=== PATIENT | female | born 1985 | race Caucasian/White ===

== ENCOUNTER 2016-04-09 16:07 | Observation (INO) ==
--- NOTE | 2016-04-09 17:24 | Emergency Department Note ---
Disposition Clinical Impression: Intractable nausea and vomiting, Hx of diabetic gastroparesis Disposition: Admitted As Inpatient Condition: Fair Reasons to Return/Additional Instructions: Return to the ED for any new or worsening symptoms. Return to the ED if worsening vomiting, inability to keep down fluids, signs of dehydration, develop abdominal pain or high glucose readings. Continues to take home diabetic medications as prescribed. Referrals: NO,PCP [Primary Care Provider] - Forms: ED Satisfaction Letter General Adult HPI - General Chief complaint: ED Nausea/Vomiting/Diarrhea Stated complaint: DKA, Nausea Time Seen by Provider: 04/09/16 17:04 Source: patient Limitations: no limitations Nursing Notes Reviewed: Yes Vital Signs Reviewed: Yes - History of Present Illness Pain Scale: 1 - Related Data Home Medications Medication Instructions Recorded Confirmed Omeprazole [PriLOSEC] 40 mg PO BID 05/06/15 04/09/16 Insulin Degludec [Tresiba 30 units SQ Q24H 04/09/16 04/09/16 Flextouch U-100] Insulin LISPRO [Humalog Kwikpen 0 unit SQ TIDWM 04/09/16 04/09/16 U-100] Metoclopramide [Reglan] 10 mg PO TID 04/09/16 04/09/16 Allergies Allergy/AdvReac Type Severity Reaction Status Date / Time Penicillins Allergy Anaphylaxis Verified 05/06/15 18:57 Past Medical History - Past Medical History Medical history: Reports: diabetes, other Surgical history: Reports: other Psychiatric history: Reports: no psych history - Social History Smoking Status: Former smoker Smokeless Tobacco Status: No Alcohol use: Reports: none Drug use: Reports: none Physical Exam - General Limitations: no limitations General appearance: alert, in no apparent distress Course Vital Signs Temperature 98.4 F 04/09/16 16:37 Pulse Rate 93 04/09/16 16:37 Respiratory Rate 16 04/09/16 16:37 Blood Pressure 132/94 04/09/16 16:37 O2 Sat by Pulse Oximetry 97 04/09/16 16:37 Temperature 98.4 F 04/09/16 16:37 Pulse Rate 86 04/09/16 20:32 Respiratory Rate 18 04/09/16 20:32 Blood Pressure 133/90 04/09/16 20:32 O2 Sat by Pulse Oximetry 96 04/09/16 20:32 Oxygen Delivery Oxygen Delivery Room Air Medical Decision Making - MDM Narrative Medical decision making narrative: I examined this patient and my medical decision-making was reviewed with the PROGRAM ADMINISTRATOR/PA/Advanced Practice Nurse/Resident Physician. I agree with the documented findings, disposition and treatment plan as described except to the extent set forth below. Patient evaluated with Dr. Ratliff, I agree with his evaluation and management plan, I supervised the care of the patient outstay. Patient has a history of diabetes and DKA. Presents today with sugar in the 130s. She has she has gastroparesis and she often starts with nausea she is found if she can present earlier and fluids and IV medications uses she feels better and can go home. She does take Reglan at home and Zofran but did not take any today. Recheck labs give her fluids and nausea medications check the urine and reassessed. She is in agreement with plan. Has a nonsurgical abdomen here. N did vomit here while being examined. 2013 hrs.: Patient remains nauseated she has had some vomiting despite fluids and multiple doses of antiemetics. I talked with her about this coming into the hospital I think she will be in agreement with that. As I just do not think she is getting better and the short period time in ED. Impressions acute exacerbation of diabetic gastroparesis. Nausea and vomiting.\ 2020: pt agrees to admission.. 2044: hospitalist accepts - Lab Data Result diagrams: 04/09/16 17:44 Lab Results 04/09/16 04/09/16 04/09/16 Range/Units 16:39 17:44 18:51 Sodium 136 (136-145) mEq/L Potassium 3.5 (3.5-4.5) mEq/L Chloride 99 (98-109) mEq/L Carbon Dioxide 28 (19-29) mEq/L BUN 11 (7-20) mg/dL Creatinine 0.63 (0.57-1.11) mg/dL Est GFR ( Amer) > 60 (> 60) Est GFR (Non-Af Amer) > 60 (> 60) BUN/Creatinine Ratio 17 (6-26) Glucose 136 H (70-99) mg/dL POC Glucose 136 H (58-89) Calculated Osmolality 283 (280-300) Calcium 9.8 (8.6-10.8) mg/dL Urine Color (Yellow) Urine Clarity (Clear) Urine pH (5.0-8.0) pH Units Ur Specific [place] (1.010-1.025) Urine Protein (Neg-Trace) mg/dL Urine Glucose (UA) (Normal) mg/dL Urine Ketones (Negative) mg/dL Urine Blood (Negative) Urine Nitrite (Negative) Urine Bilirubin (Negative) Urine Urobilinogen (Normal) mg/dL Ur Leukocyte Esterase (Negative) Urine Microscopic RBC (0-3) per hpf Urine Microscopic WBC (0-3) per hpf Ur Squamous Epith Cells (None-Few) per lpf Urine Bacteria (None-Few) per hpf Urine Test Negative (Negative) 04/09/16 Range/Units 19:31 Sodium (136-145) mEq/L Potassium (3.5-4.5) mEq/L Chloride (98-109) mEq/L Carbon Dioxide (19-29) mEq/L BUN (7-20) mg/dL Creatinine (0.57-1.11) mg/dL Est GFR ( Amer) (> 60) Est GFR (Non-Af Amer) (> 60) BUN/Creatinine Ratio (6-26) Glucose (70-99) mg/dL POC Glucose (58-89) Calculated Osmolality (280-300) Calcium (8.6-10.8) mg/dL Urine Color Yellow (Yellow) Urine Clarity Slightly Hazy (Clear) Urine pH 8.0 (5.0-8.0) pH Units Ur Specific [place] 1.020 (1.010-1.025) Urine Protein Trace (Neg-Trace) mg/dL Urine Glucose (UA) 100 H (Normal) mg/dL Urine Ketones Trace H (Negative) mg/dL Urine Blood Large H (Negative) Urine Nitrite Negative (Negative) Urine Bilirubin Negative (Negative) Urine Urobilinogen Normal (Normal) mg/dL Ur Leukocyte Esterase Negative (Negative) Urine Microscopic RBC 3-5 H (0-3) per hpf Urine Microscopic WBC 3-5 H (0-3) per hpf Ur Squamous Epith Cells Few (None-Few) per lpf Urine Bacteria Few (None-Few) per hpf Urine Test (Negative)
--- NOTE | 2016-04-09 17:25 | Emergency Department Note ---
Disposition Clinical Impression: Hx of diabetic gastroparesis Intractable nausea and vomiting Qualifiers: Vomiting type: unspecified Qualified Code(s): R11.2 - Nausea with vomiting, unspecified Disposition: Admitted As Inpatient Condition: Fair Reasons to Return/Additional Instructions: Referrals: NO,PCP [Primary Care Provider] - Forms: ED Satisfaction Letter Time of Disposition: 20:47 Nausea/Vomiting/Diarrhea HPI - General Chief complaint: ED Nausea/Vomiting/Diarrhea Stated complaint: DKA, Nausea Time Seen by Provider: 04/09/16 17:04 Source: patient Mode of arrival: ambulatory Limitations: no limitations Nursing Notes Reviewed: Yes Vital Signs Reviewed: Yes - History of Present Illness HPI Narrative: Patient is a 31 yo female with PMHx of diabetes, insulin controlled, previous history of DKA with ICU stays, she also has gastroparesis. Patient states that she takes Reglan daily for gastroparesis. She also takes Zofran for breakthrough nausea. Today, she presents with vomiting. She denies any abdominal pain. She says that this is how her gastroparesis usually presents with excessive vomiting. She presented early today due to concerns and fear that this would turn into DKA. She is not had any high blood sugar readings on home. She did not take any Zofran prior to coming in because she wanted to be evaluated first. Otherwise, denies any chest pain, shortness of breath, fevers , diarrhea, abdominal pain. She is unable to keep down any fluids or food. - Related Data Home Medications Medication Instructions Recorded Confirmed Omeprazole [PriLOSEC] 40 mg PO BID 05/06/15 04/09/16 Insulin Degludec [Tresiba 30 units SQ Q24H 04/09/16 04/09/16 Flextouch U-100] Insulin LISPRO [Humalog Kwikpen 0 unit SQ TIDWM 04/09/16 04/09/16 U-100] Metoclopramide [Reglan] 10 mg PO TID 04/09/16 04/09/16 Allergies Allergy/AdvReac Type Severity Reaction Status Date / Time Penicillins Allergy Anaphylaxis Verified 05/06/15 18:57 Constitutional: Denies: fever Cardiovascular: Denies: chest pain, palpitations, dyspnea on exertion Respiratory: Denies: cough, dyspnea, wheezes, hemoptysis Gastrointestinal: Reports: nausea, vomiting. Denies: abdominal pain, diarrhea, constipation Genitourinary: Denies: urgency, dysuria, frequency Musculoskeletal: Denies: back pain, neck pain Integumentary: Denies: rash Neurological: Denies: headache, weakness, numbness, paresthesias Psychiatric: Denies: anxiety Past Medical History - Past Medical History Attestation: Yes The following information was validated with the patient. Source: patient Medical history: Reports: diabetes, other Surgical history: Reports: other Psychiatric history: Reports: no psych history - Social History Smoking Status: Former smoker Smokeless Tobacco Status: No Alcohol use: Reports: none Drug use: Reports: none Physical Exam Patient had copious amounts of vomiting during exam. - General Limitations: no limitations General appearance: alert, in no apparent distress - Head Head exam: atraumatic, normocephalic, normal inspection - Eye Eye exam: Present: normal appearance, PERRL, EOMI - ENT ENT exam: normal exam, normal oropharynx, mucous membranes moist - Neck Neck exam: Present: normal inspection, full ROM, trachea midline - Chest Chest inspection: Present: normal inspection, symmetric chest wall rise - Respiratory Respiratory exam: Present: normal lung sounds bilaterally - Cardiovascular Cardiovascular exam: Present: regular rate, normal rhythm, normal heart sounds - Abdominal Exam Abdominal exam: Present: soft, Non-Tender. Absent: tenderness, distention, guarding, rebound, rigidity - Extremities Exam Extremities exam: Present: normal inspection, full ROM. Absent: tenderness, pedal edema - Back Exam Back exam: Present: normal inspection, full ROM. Absent: tenderness - Neurological Exam Neurological exam: Present: alert, oriented X3 - Psychiatric Psychiatric exam: Present: normal affect, normal mood - Skin Skin exam: Present: warm, dry, intact, normal color Course Course Narrative: Vitals WNL. Physical exam showed no abd tenderness. SHe had copious amounts of vomiting on exam. Glucose was 140s. No concern for DKA at this time. She states this is how her gastroparesis always presents. WIll order BMP, zofran, fluids. WIll try to get patient symptomatically controlled and try to discharge home. She states that this is her goal for this visit as well. 20:00 BMP shows electrolytes WNL. Mildly high glucose at 136. Waiting on UA. Urine preg negative. She has had 2 liters of fluid and continues to have nausea and vomiting. She also got an additional 8 of zofran. Will give home dose of reglan 10mg. WIll also give benadryl 50mg. Discussed admission with the patient for intractable nausea and vomiting in setting of gastroparesis. She was happy and agreeable with this plan. 20:38 UA negative. 20:[address] Jett and he accepted for admission, requested acute abdominal series on the way to the floor. Vital Signs Temperature 98.4 F 04/09/16 16:37 Pulse Rate 93 04/09/16 16:37 Respiratory Rate 16 04/09/16 16:37 Blood Pressure 132/94 04/09/16 16:37 O2 Sat by Pulse Oximetry 97 04/09/16 16:37 Temperature 98.4 F 04/09/16 16:37 Pulse Rate 86 04/09/16 20:32 Respiratory Rate 18 04/09/16 20:32 Blood Pressure 133/90 04/09/16 20:32 O2 Sat by Pulse Oximetry 96 04/09/16 20:32 Oxygen Delivery Oxygen Delivery Room Air Nausea/Vomiting/Diarrhea - [facility] Narrative Medical decision making narrative: Vitals WNL. Physical exam showed no abd tenderness. SHe had copious amounts of vomiting on exam. Glucose was 140s. No concern for DKA at this time. She states this is how her gastroparesis always presents. WIll order BMP, zofran, fluids. WIll try to get patient symptomatically controlled and try to discharge home. She states that this is her goal for this visit as well. 20:00 BMP shows electrolytes WNL. Mildly high glucose at 136. Waiting on UA. Urine preg negative. She has had 2 liters of fluid and continues to have nausea and vomiting. She also got an additional 8 of zofran. Will give home dose of reglan 10mg. WIll also give benadryl 50mg. Discussed admission with the patient for intractable nausea and vomiting in setting of gastroparesis. She was happy and agreeable with this plan. 20:38 UA negative. 20:[address] Jett and he accepted for admission, requested acute abdominal series on the way to the floor. - Medical Records Medical records reviewed: Yes I reviewed the patient's medical records. - Lab Data Lab results reviewed: Yes I reviewed the patient's lab results. Result diagrams: 04/09/16 17:44 Lab Results 02/08/1804/09/16 04/09/16 Range/Units 16:39 17:44 18:51 Sodium 136 (136-145) mEq/L Potassium 3.5 (3.5-4.5) mEq/L Chloride 99 (98-109) mEq/L Carbon Dioxide 28 (19-29) mEq/L BUN 11 (7-20) mg/dL Creatinine 0.63 (0.57-1.11) mg/dL Est GFR ( Amer) > 60 (> 60) Est GFR (Non-Af Amer) > 60 (> 60) BUN/Creatinine Ratio 17 (6-26) Glucose 136 H (70-99) mg/dL POC Glucose 136 H (58-89) Calculated Osmolality 283 (280-300) Calcium 9.8 (8.6-10.8) mg/dL Urine Color (Yellow) Urine Clarity (Clear) Urine pH (5.0-8.0) pH Units Ur Specific [place] (1.010-1.025) Urine Protein (Neg-Trace) mg/dL Urine Glucose (UA) (Normal) mg/dL Urine Ketones (Negative) mg/dL Urine Blood (Negative) Urine Nitrite (Negative) Urine Bilirubin (Negative) Urine Urobilinogen (Normal) mg/dL Ur Leukocyte Esterase (Negative) Urine Microscopic RBC (0-3) per hpf Urine Microscopic WBC (0-3) per hpf Ur Squamous Epith Cells (None-Few) per lpf Urine Bacteria (None-Few) per hpf Urine Test Negative (Negative) 04/09/16 Range/Units 19:31 Sodium (136-145) mEq/L Potassium (3.5-4.5) mEq/L Chloride (98-109) mEq/L Carbon Dioxide (19-29) mEq/L BUN (7-20) mg/dL Creatinine (0.57-1.11) mg/dL Est GFR ( Amer) (> 60) Est GFR (Non-Af Amer) (> 60) BUN/Creatinine Ratio (6-26) Glucose (70-99) mg/dL POC Glucose (58-89) Calculated Osmolality (280-300) Calcium (8.6-10.8) mg/dL Urine Color Yellow (Yellow) Urine Clarity Slightly Hazy (Clear) Urine pH 8.0 (5.0-8.0) pH Units Ur Specific [place] 1.020 (1.010-1.025) Urine Protein Trace (Neg-Trace) mg/dL Urine Glucose (UA) 100 H (Normal) mg/dL Urine Ketones Trace H (Negative) mg/dL Urine Blood Large H (Negative) Urine Nitrite Negative (Negative) Urine Bilirubin Negative (Negative) Urine Urobilinogen Normal (Normal) mg/dL Ur Leukocyte Esterase Negative (Negative) Urine Microscopic RBC 3-5 H (0-3) per hpf Urine Microscopic WBC 3-5 H (0-3) per hpf Ur Squamous Epith Cells Few (None-Few) per lpf Urine Bacteria Few (None-Few) per hpf Urine Test (Negative) S.Frank.Macy - Gin Situation: Demographics, MOA Background: Presenting Complaint, Relevant PMH, Meds, & Allergies Assessment: Vital Signs, Course and respsone to treatment, Exam Concerns, Patient/Family Expectation, Pertinant Lab Results, Outstanding Labs Recommendation: Barrier(s) to disposition, Recommendation based on pending studies, treatments, or consults S.B.ALuciano Report Given to: Dr. Maliha Greenfield Repor Time: 20:47
[2016-04-09] MEDS: 0.9 % Sodium Chloride 1,000 ML IVC ONE ×2 (17:47→18:58)
[2016-04-09] MEDS: Ondansetron 4 MG/2 ML VIAL IVP ONE ×2 (17:47→18:58)
[2016-04-09 18:25] LABS: BUN/Creatinine Ratio 17 (6-26); Blood Urea Nitrogen 11 mg/dL (7-20); Calcium 9.8 mg/dL (8.6-10.8); Carbon Dioxide 28 mEq/L (19-29); Chloride 99 mEq/L (98-109); Glucose 136 mg/dL (70-99); Osmolality,Calculated 283 (280-300); Potassium 3.5 mEq/L (3.5-4.5); Sodium 136 mEq/L (136-145); eGFR For African Americans > 60 (> 60); eGFR For Non-African Americans > 60 (> 60)
[2016-04-09] MEDS ORDERED: 0.9 % Sodium Chloride 1,000 ML IVC ONE ×2 (18:50→20:12)
[2016-04-09] MEDS ORDERED: 0.9 % Sodium Chloride 1,000 ML ONE (18:51)
[2016-04-09] MEDS ORDERED: Ondansetron 4 MG/2 ML VIAL IV ONE (18:52)
[2016-04-09] MEDS ORDERED: Ondansetron 4 MG/2 ML VIAL ONE (18:54)
[2016-04-09] MEDS ORDERED: Metoclopramide 10 MG/2 ML VIAL IVP ONE (20:12)
[2016-04-09 20:18] LABS: Bilirubin,Urine Negative (Negative); Blood,Urine Large (Negative); Clarity,Urine Slightly Hazy (Clear); Color,Urine Yellow (Yellow); Glucose,Urine (UA) 100 mg/dL (Normal); Ketones,Urine Trace mg/dL (Negative)
[2016-04-09 20:19] LABS: Leukocyte Esterase,Urine Negative (Negative); Nitrite,Urine Negative (Negative); Protein,Urine Trace mg/dL (Neg-Trace); Urobilinogen,Urine Normal (Normal)
[2016-04-09 20:22] LABS: Squamous Epithelial Cell,Urine Few per lpf (None-Few)
[2016-04-09 20:23] LABS: Bacteria,Urine Few per hpf (None-Few)
--- NOTE | 2016-04-09 21:00 | Internal Med History&Physical ---
Date of Encounter: 04/09/16 Time of Encounter: 20:57 Assessment and Plan (1) Intractable nausea and vomiting Current visit: Yes Status: Acute Patient with type 1 diabetes, admitted due to intractable vomiting. Clinically dehydrated. No evidence of diabetes ketoacidosis. Evidence of acute kidney injury. Continue with IV fluids. Symptomatic therapy for nausea and vomiting. DVT prophylaxis according to hospital protocol. Monitor fingerstick. Insulin therapy. Discussed with patient. Qualifiers: Vomiting type: cyclical vomiting Qualified Code(s): G43.A1 - Cyclical vomiting, intractable (2) DM type 1 (diabetes mellitus, type 1) Current visit: No Status: Acute No evidence of DKA. Qualifiers: Diabetes mellitus complication status: with ketoacidosis Diabetes mellitus complication detail: without coma Qualified Code(s): E10.10 - Type 1 diabetes mellitus with ketoacidosis without coma (3) DVT prophylaxis Current visit: No Status: Acute (4) Gastroparesis Current visit: No Status: Acute (5) Hx of diabetic gastroparesis Current visit: Yes Status: Acute Internal Medicine - H&P: HPI Chief complaint: Nausea and vomiting Admitted From: Emergency Dept Plans for Post Hospital Care: Home History of present illness: Ms. Tim is a 31 year old female with past medical history 1 diabetes, diabetic gastroparesis. She presented to our emergency department complaining of persistent nausea and vomiting which started earlier today. The patient states that she has vomited at least 7 times, she cannot keep anything down. Denied fever, chest pain, shortness of breath, dysuria, diarrhea. She was already initiated in the emergency department, she was discharged however she returned to the ED for reevaluation due to lack of improvement. Workup in the emergency department revealed a biochemistry consistent with volume of 136, potassium 3.5, BUN 11, creatinine 0.53, glucose 136. Urinalysis was unremarkable. The patient was admitted for further management and workup of her intractable nausea and vomiting. Past Med Surg Social Fam HX - Past Medical History Medical history: diabetes, other Psychiatric history: no psych history - Past Surgical History Surgical History: other - Social History Smoking Status: Former smoker Smokeless Tobacco Status: No Alcohol use: none Drug use: none - Family History Mother Living Status: Still Living Father Living Status: Still Living Internal Medicine - H&P: Meds Omeprazole [PriLOSEC] 40 mg PO BID 05/06/15 [History] Insulin Degludec [Tresiba Flextouch U-100] 30 units SQ Q24H 04/09/16 [History] Insulin LISPRO [Humalog Kwikpen U-100] 0 unit SQ TIDWM 04/09/16 [History] Metoclopramide [Reglan] 10 mg PO TID 04/09/16 [History] Allergies Penicillins Allergy (Verified 05/06/15 18:57) Anaphylaxis All Systems PM: A 10-system review of systems was performed and is negative for pertinent findings except as documented above in the HPI. - Constitutional Constitutional: as per HPI, anorexia, lethargy, malaise, weakness, no chills, no fever(s), no night sweats - EENT Eyes: as per HPI, no change in vision, no discharge, no pain, no photophobia Ears: as per HPI, no ear discharge, no ear pain, no tinnitus Nose, mouth and throat: as per HPI, no dysphagia, no nasal discharge, no neck pain, no sore throat - Breasts Breasts: as per HPI - Cardiovascular Cardiovascular ROS IM: as per HPI, no chest pain, no diaphoresis, no dyspnea, no lightheadedness, no palpitations, no syncope - Respiratory Respiratory: as per HPI, no cough, no dyspnea, no wheezing, no excessive phlegm production - Gastrointestinal Gastrointestinal: as per HPI, abdominal pain, no diarrhea, no hematemesis, no hematochezia, no melena, no nausea, no vomiting - Genitourinary Genitourinary: as per HPI, no change in urinary stream, no dysuria, no flank pain, no hematuria Menstruation: as per HPI - Musculoskeletal Musculoskeletal ROS IM: as per HPI, no numbness, no tingling - Integumentary Integumentary IM: as per HPI, no rash, no unusual bruising - Neurological Neurological ROS: as per HPI, no confusion, no convulsions, no focal weakness, no numbness, no tingling, no tremor(s) - Psychiatric Psychiatric: as per HPI - Endocrine Endocrine IM: as per HPI - Hematologic/Lymphatic Hematologic/Lymphatic: as per HPI, no easy bruising - Allergic/Immunologic Allergic/Immunologic: as per HPI - Constitutional Vitals: Temp Pulse Resp BP Pulse Ox 98.4 F 86 18 133/90 96 04/09/16 16:37 04/09/16 20:32 04/09/16 20:32 04/09/16 20:32 04/09/16 20:32 General appearance: Present: cooperative, mild distress, A&O X 3, pleasant Exam: Dry mucous membranes. - Head Head exam: Present: atraumatic, normocephalic - Eye Eye exam: Present: PERRL, conjuntiva pink, sclera anicteric Pupils: Present: PERRL - Neck Neck exam general surgery: Present: supple, trachea midline. Absent: lymphadenopathy - Respiratory Respiratory exam: Present: CTAB. Absent: accessory muscle use, rales, rhonchi, wheezes - Cardiovascular Cardiovascular exam: Present: RRR, +S1, +S2. Absent: diastolic murmur, gallop, rubs, systolic murmur - GI/Abdominal GI/Abdominal exam: Present: normal bowel sounds, soft, no peritoneal signs. Absent: distended, tenderness - Extremities Exam Extremities exam: Present: warm, radial pulses palpable and symetrical. Absent : calf tenderness, cyanotic, pedal edema - Neurological Exam Neurological exam: Present: CN II-XII intact, oriented X3, no focal deficits. Absent: pronater drift, facial droop, speech deficit - Skin Skin exam: Present: dry, intact Internal Med - H&P Results - Labs CBC & Chem 7: 04/09/16 17:44
[2016-04-09] MEDS ORDERED: Naloxone 0.4 MG/ML INJ IVP PRN (21:07)
[2016-04-09] MEDS ORDERED: Ondansetron 4 MG/2 ML VIAL IVP PRN (21:07)
[2016-04-09] MEDS ORDERED: Acetaminophen 325 MG TABLET PO PRN (21:07)
[2016-04-09] MEDS ORDERED: Metoclopramide 10 MG/2 ML VIAL IVP PRN (21:10)
[2016-04-09] MEDS ORDERED: Dextrose Gel 15 GM PO PRN ×2 (21:10)
[2016-04-09] MEDS ORDERED: D5% in Water 1,000 ML IV PRN (21:10)
[2016-04-09] MEDS ORDERED: *HR* Dextrose 50 % in Water (Syg) 50 ML SYRINGE IVP PRN (21:10)
[2016-04-09] MEDS: Ringers Solution, Lactated 1,000 ML IVC SCH (22:00)
[2016-04-10] MEDS ORDERED: *HR* Dextrose 50 % in Water (Syg) 50 ML SYRINGE IVP PRN (02:32)
[2016-04-10] MEDS ORDERED: D5% in Water 1,000 ML IV PRN (02:32)
[2016-04-10] MEDS ORDERED: Dextrose Gel 15 GM PO PRN ×2 (02:32)
[2016-04-10] MEDS ORDERED: Insulin LISPRO 300 UNITS/3 ML VIAL SQ ONE (02:33)
[2016-04-10 04:54] VITALS: BP 101/69
[2016-04-10 05:33] LABS: Hemoglobin 12.5 g/dL (11.5-15.4); Mean Corpuscular HGB Conc 32.9 g/dL (31.6-35.5); Mean Corpuscular Hemoglobin 28.2 pg (28.0-33.3); Mean Corpuscular Volume 85.6 fL (83.0-100.0); Mean Platelet Volume 9.5 fL (9.4-12.4); Platelet Count 240 K/mcL (140-400); Red Blood Count 4.44 M/mcL (3.82-4.97); Red Cell Distribution Width 12.3 % (11.5-14.5)
[2016-04-10] MEDS: Ringers Solution, Lactated 1,000 ML IVC SCH ×2 (05:42→08:12)
[2016-04-10 05:52] LABS: BUN/Creatinine Ratio 13 (6-26); Blood Urea Nitrogen 7 mg/dL (7-20); Carbon Dioxide 22 mEq/L (19-29); Chloride 108 mEq/L (98-109); Glucose 246 mg/dL (70-99); Osmolality,Calculated 292 (280-300); Potassium 3.5 mEq/L (3.5-4.5); Sodium 138 mEq/L (136-145); eGFR For African Americans > 60 (> 60); eGFR For Non-African Americans > 60 (> 60)
[2016-04-10 05:54] LABS: Calcium 8.1 mg/dL (8.6-10.8)
[2016-04-10] MEDS ORDERED: Famotidine 20 MG/2 ML VIAL IVP SCH (06:00)
[2016-04-10] MEDS ORDERED: Insulin LISPRO 300 UNITS/3 ML VIAL SQ SCH ×2 (07:30→08:00)
[2016-04-10] MEDS ORDERED: TRESIBA 30 UNIT SQ SCH (09:00)
--- NOTE | 2016-04-10 09:35 | Event Note ---
Date of Encounter: 04/10/16 Time of Encounter: 09:10 Informed by RAQUEL Means that the patient is not in her room and appears to have eloped the hospital. She did not sign any AMA paperwork. Patient left prior to my evaluation.
[2016-04-10] MEDS ORDERED: Insulin DETEMIR 100 UNIT/ML X5UNITS SQ SCH (21:00)
== END 2016-04-10 08:53 | disposition left against medical advice (07) ==
LOC: EMEROO 16:07 → 3ANU 16:07
PROVIDERS: ADMIT Pediatrics; ATTEND Internal Medicine

== ENCOUNTER 2017-10-07 11:05 | Inpatient (IN) ==
[2017-10-07] MEDS ORDERED: Ondansetron 4 MG/2 ML VIAL IVP ONE (11:12)
--- NOTE | 2017-10-07 11:13 | Emergency Department Note ---
Disposition Clinical Impression: Gastroparesis due to DM DKA (diabetic ketoacidoses) Qualifiers: Diabetes mellitus type: type 1 Diabetes mellitus complication detail: without coma Qualified Code(s): E10.10 - Type 1 diabetes mellitus with ketoacidosis without coma Nausea & vomiting Qualifiers: Vomiting type: unspecified Vomiting Intractability: non-intractable Qualified Code(s): R11.2 - Nausea with vomiting, unspecified Disposition: Admitted As Inpatient Condition: Fair Referrals: Yoana Napier CNP [Primary Care Provider] - Time of Disposition: 13:39 Abdominal Pain HPI - General Chief Complaint: ED Abdominal Pain Stated Complaint: Abdominal pain vomiting Time Seen by Provider: 10/07/17 11:07 Source: patient Mode of arrival: EMS Limitations: no limitations Nursing Notes Reviewed: Yes Vital Signs Reviewed: Yes - History of Present Illness HPI Narrative: 32-year-old female with history of type 1 diabetes and gastroparesis presents via EMS with complaints of acute nausea and vomiting since 0300. Patient states that yesterday she was at [facility] and in the evening had 4 alcoholic drinks. She then came home and woke up with acute symptoms. She vomited the drinks up first, then her food. She tried to drink water and immediately threw that up as well. Her pain is all located in the epigastric region and is rated 5/10 described as a crampy pain. She denies any fevers, chills, chest pain, shortness of breath, diarrhea. Pain Scale: 4 - Related Data Allergies Allergy/AdvReac Type Severity Reaction Status Date / Time Penicillins Allergy Anaphylaxis Verified 05/06/15 18:57 All systems ED: reviewed and negative except as stated. Abdominal Pain PMH - Past Medical History Medical history: Reports: diabetes, other (gastroparesis) Female Surgical History: Reports: Adenoidectomy, Tonsillectomy, other LMP comments: week(s) (1) Psychiatric history: Reports: no psych history - Social History Smoking status: Former smoker Alcohol use: Reports: occasionally Drug use: Reports: none Physical Exam - General Limitations: no limitations General appearance: alert, anxious - Head Head exam: atraumatic, normocephalic, normal inspection - Eye Eye exam: Present: normal appearance, PERRL, EOMI - ENT ENT exam: mucous membranes dry - Neck Neck exam: Present: normal inspection, full ROM, trachea midline - Respiratory Respiratory exam: Present: normal lung sounds bilaterally - Cardiovascular Cardiovascular exam: Present: normal rhythm, tachycardia - Abdominal Exam Abdominal exam: Present: soft, tenderness. Absent: distention, guarding, rebound, rigidity Abdominal tenderness: Present: epigastrium, mild - Extremities Exam Extremities exam: Present: normal inspection, full ROM. Absent: tenderness, pedal edema - Neurological Exam Neurological exam: Present: alert, oriented X3 - Psychiatric Psychiatric exam: Present: normal affect, normal mood - Skin Skin exam: Present: warm, dry, intact, normal color Course Course Narrative: 32-year-old female presents with acute vomiting since 0300. History of type 1 diabetes and gastroparesis. States that she was at [facility] and had 4 alcoholic beverages yesterday. Symptoms are cramping in the epigastric region. Pain is rated 5 out of 10. Patient states she has a history of 4 episodes of this in the past. No known triggers for episodes. She has ended up intubated in the ICU before. She usually takes reglan for sx at home and tries to avoid hospitalization. Patient is acutely vomiting clear fluids on arrival. Will give Zofran IV and 1 L bolus. Lab work and UA pending. - Reevaluation(s) Reevaluation #1: Pt feeling better after zofran and 1L NS bolus. Discussed that labwork shows DKA. pH 7.21, HCO3 8, CO2 23, K 3.9. Corrected Na 144. Will start DKA protocol. Pt will be admitted for management. Time: 13:25 - Consultations Consultation #1: Discussed the case with Dr. Das with the hospitalist service who has accepted the patient for admission. 1 amp of Bicarb ordered per his request. Time: 13:38 Vital Signs Temperature 98.1 F 10/07/17 11:07 Pulse Rate 107 10/07/17 11:07 Respiratory Rate 16 10/07/17 11:07 Blood Pressure 114/78 10/07/17 11:07 O2 Sat by Pulse Oximetry 98 10/07/17 11:07 Temperature 98.1 F 10/07/17 11:07 Pulse Rate 106 10/07/17 13:11 Respiratory Rate 18 10/07/17 13:11 Blood Pressure 97/56 10/07/17 13:11 O2 Sat by Pulse Oximetry 98 10/07/17 13:11 Oxygen Delivery Oxygen Delivery Room Air Abdominal Pain - MDM Narrative Medical decision making narrative: 32 y/of DM type 1 presents with acute nausea, vomiting. Labwork shows DKA. Pt admitted with fluids, K, insulin drip. Discussed case with hospitalists who have accepted pt for admission for management of DKA. PT stable for admission. - Medical Records Medical records reviewed: Yes I reviewed the patient's medical records. - Lab Data Lab results reviewed: Yes I reviewed the patient's lab results. Result diagrams: 10/07/17 11:28 10/07/17 11:28 Lab Results 10/07/17 10/07/17 10/07/17 Range/Units 11:28 11:28 11:56 WBC 12.8 H (4.3-11.1) K/mcL RBC 4.24 (3.82-4.97) M/mcL Hgb 13.8 (11.5-15.4) g/dL Hct 43.0 (35.3-44.9) % MCV 101.4 H (83.0-100.0) fL MCH 32.5 (28.0-33.3) pg MCHC 32.1 (31.6-35.5) g/dL RDW 13.4 (11.5-14.5) % Plt Count 327 (140-400) K/mcL MPV 9.1 L (9.4-12.4) fL Immature Gran % 1.2 (0-4) % Seg Neutrophils % 82.4 % Lymphocytes % 12.4 % Monocytes % 2.9 % Eosinophils % 0.2 % Basophils % 0.9 % Neutrophils # 10.6 H (1.6-8.9) K/mcL Lymphocytes # 1.6 (0.6-4.6) K/mcL Monocytes # 0.4 (0.0-1.3) K/mcL Eosinophils # 0.0 (0.0-0.6) K/mcL Basophils # 0.1 (0.0-0.2) K/mcL VBG pH (7.32-7.42) pH Units VBG pCO2 (41-51) mmHg VBG pO2 (25-50) mmHg VBG HCO3 (21-27) mEq/L Sodium 139 (136-145) mEq/L Potassium 3.9 (3.5-5.1) mEq/L Chloride 102 (98-107) mEq/L Carbon Dioxide 8 L* (23-29) mEq/L BUN 16 (6-20) mg/dL Creatinine 0.76 (0.60-1.20) mg/dL Est GFR ( Amer) > 60 (> 60) Est GFR (Non-Af Amer) > 60 (> 60) BUN/Creatinine Ratio 21 (6-26) Glucose 389 H (70-105) mg/dL POC Glucose (70-99) mg/dL Calculated Osmolality 305 H (280-300) Calcium 8.8 (8.6-10.3) mg/dL Total Bilirubin 0.4 (0.3-1.0) mg/dL Direct Bilirubin 0.1 (0.0-0.2) mg/dL Indirect Bilirubin 0.3 (0.0-1.2) mg/dL AST 34 (13-39) Units/L ALT 25 (7-52) Units/L Alkaline Phosphatase 87 (34-104) Units/L Serum Total Protein 6.5 (6.4-8.9) g/dL Albumin 4.0 (3.5-5.7) g/dL Globulin 2.5 (2.4-3.5) g/dL Albumin/Globulin Ratio 1.6 (1.1-2.2) Amylase 17 L (29-103) Units/L Lipase 4 L (11-82) Units/L Beta-Hydroxybutyric Acd (0.02-0.27) mmol/L Urine Color Yellow (Yellow) Urine Clarity Clear (Clear) Urine pH 5.5 (5.0-8.0) pH Units Ur Specific [place] > 1.030 H (1.010-1.025) Urine Protein Trace (Neg-Trace) mg/dL Urine Glucose (UA) >=1000 H (Normal) mg/dL Urine Ketones >=160 H (Negative) mg/dL Urine Blood Large H (Negative) Urine Nitrite Negative (Negative) Urine Bilirubin Negative (Negative) Urine Urobilinogen Normal (Normal) mg/dL Ur Leukocyte Esterase Negative (Negative) Urine Microscopic RBC 5-15 H (0-3) per hpf Urine Microscopic WBC 3-5 H (0-3) per hpf Ur Squamous Epith Cells Moderate H (None-Few) per lpf Urine Bacteria None Seen (None-Few) per hpf Hyaline Casts None Seen (None-Few) per lpf Ur Culture Indicated? NO (NO) Urine Test (Negative) 10/07/17 10/07/17 10/07/17 Range/Units 11:56 11:59 12:14 WBC (4.3-11.1) K/mcL RBC (3.82-4.97) M/mcL Hgb (11.5-15.4) g/dL Hct (35.3-44.9) % MCV (83.0-100.0) fL MCH (28.0-33.3) pg MCHC (31.6-35.5) g/dL RDW (11.5-14.5) % Plt Count (140-400) K/mcL MPV (9.4-12.4) fL Immature Gran % (0-4) % Seg Neutrophils % % Lymphocytes % % Monocytes % % Eosinophils % % Basophils % % Neutrophils # (1.6-8.9) K/mcL Lymphocytes # (0.6-4.6) K/mcL Monocytes # (0.0-1.3) K/mcL Eosinophils # (0.0-0.6) K/mcL Basophils # (0.0-0.2) K/mcL VBG pH 7.21 L (7.32-7.42) pH Units VBG pCO2 23 L (41-51) mmHg VBG pO2 180 H (25-50) mmHg VBG HCO3 9 L (21-27) mEq/L Sodium (136-145) mEq/L Potassium (3.5-5.1) mEq/L Chloride (98-107) mEq/L Carbon Dioxide (23-29) mEq/L BUN (6-20) mg/dL Creatinine (0.60-1.20) mg/dL Est GFR ( Amer) (> 60) Est GFR (Non-Af Amer) (> 60) BUN/Creatinine Ratio (6-26) Glucose (70-105) mg/dL POC Glucose (70-99) mg/dL Calculated Osmolality (280-300) Calcium (8.6-10.3) mg/dL Total Bilirubin (0.3-1.0) mg/dL Direct Bilirubin (0.0-0.2) mg/dL Indirect Bilirubin (0.0-1.2) mg/dL AST (13-39) Units/L ALT (7-52) Units/L Alkaline Phosphatase (34-104) Units/L Serum Total Protein (6.4-8.9) g/dL Albumin (3.5-5.7) g/dL Globulin (2.4-3.5) g/dL Albumin/Globulin Ratio (1.1-2.2) Amylase (29-103) Units/L Lipase (11-82) Units/L Beta-Hydroxybutyric Acd > 2.00 H (0.02-0.27) mmol/L Urine Color (Yellow) Urine Clarity (Clear) Urine pH (5.0-8.0) pH Units Ur Specific [place] (1.010-1.025) Urine Protein (Neg-Trace) mg/dL Urine Glucose (UA) (Normal) mg/dL Urine Ketones (Negative) mg/dL Urine Blood (Negative) Urine Nitrite (Negative) Urine Bilirubin (Negative) Urine Urobilinogen (Normal) mg/dL Ur Leukocyte Esterase (Negative) Urine Microscopic RBC (0-3) per hpf Urine Microscopic WBC (0-3) per hpf Ur Squamous Epith Cells (None-Few) per lpf Urine Bacteria (None-Few) per hpf Hyaline Casts (None-Few) per lpf Ur Culture Indicated? (NO) Urine Test Negative (Negative) 10/07/17 Range/Units 13:31 WBC (4.3-11.1) K/mcL RBC (3.82-4.97) M/mcL Hgb (11.5-15.4) g/dL Hct (35.3-44.9) % MCV (83.0-100.0) fL MCH (28.0-33.3) pg MCHC (31.6-35.5) g/dL RDW (11.5-14.5) % Plt Count (140-400) K/mcL MPV (9.4-12.4) fL Immature Gran % (0-4) % Seg Neutrophils % % Lymphocytes % % Monocytes % % Eosinophils % % Basophils % % Neutrophils # (1.6-8.9) K/mcL Lymphocytes # (0.6-4.6) K/mcL Monocytes # (0.0-1.3) K/mcL Eosinophils # (0.0-0.6) K/mcL Basophils # (0.0-0.2) K/mcL VBG pH (7.32-7.42) pH Units VBG pCO2 (41-51) mmHg VBG pO2 (25-50) mmHg VBG HCO3 (21-27) mEq/L Sodium (136-145) mEq/L Potassium (3.5-5.1) mEq/L Chloride (98-107) mEq/L Carbon Dioxide (23-29) mEq/L BUN (6-20) mg/dL Creatinine (0.60-1.20) mg/dL Est GFR ( Amer) (> 60) Est GFR (Non-Af Amer) (> 60) BUN/Creatinine Ratio (6-26) Glucose (70-105) mg/dL POC Glucose 109 H (70-99) mg/dL Calculated Osmolality (280-300) Calcium (8.6-10.3) mg/dL Total Bilirubin (0.3-1.0) mg/dL Direct Bilirubin (0.0-0.2) mg/dL Indirect Bilirubin (0.0-1.2) mg/dL AST (13-39) Units/L ALT (7-52) Units/L Alkaline Phosphatase (34-104) Units/L Serum Total Protein (6.4-8.9) g/dL Albumin (3.5-5.7) g/dL Globulin (2.4-3.5) g/dL Albumin/Globulin Ratio (1.1-2.2) Amylase (29-103) Units/L Lipase (11-82) Units/L Beta-Hydroxybutyric Acd (0.02-0.27) mmol/L Urine Color (Yellow) Urine Clarity (Clear) Urine pH (5.0-8.0) pH Units Ur Specific Nunn (1.010-1.025) Urine Protein (Neg-Trace) mg/dL Urine Glucose (UA) (Normal) mg/dL Urine Ketones (Negative) mg/dL Urine Blood (Negative) Urine Nitrite (Negative) Urine Bilirubin (Negative) Urine Urobilinogen (Normal) mg/dL Ur Leukocyte Esterase (Negative) Urine Microscopic RBC (0-3) per hpf Urine Microscopic WBC (0-3) per hpf Ur Squamous Epith Cells (None-Few) per lpf Urine Bacteria (None-Few) per hpf Hyaline Casts (None-Few) per lpf Ur Culture Indicated? (NO) Urine Test (Negative) Attestation Statement - Attestation Attestation: I, Timmy Kemp DO, examined this patient [id number] and my medical decision-making was reviewed with Audrey Jaramillo PGY-3, Resident Physician. I agree with the documented findings, disposition and treatment plan as described except to the extent set forth below. Please see my progress notes for details.
[2017-10-07] MEDS ORDERED: 0.9 % Sodium Chloride 1,000 ML IVC ONE (11:18)
[2017-10-07 11:39] LABS: Basophils # 0.1 K/mcL (0.0-0.2); Basophils % 0.9 %; Eosinophils % 0.2 %; Hemoglobin 13.8 g/dL (11.5-15.4); Immature Granulocytes % 1.2 % (0-4); Lymphocytes # 1.6 K/mcL (0.6-4.6); Lymphocytes % 12.4 %; Mean Corpuscular HGB Conc 32.1 g/dL (31.6-35.5); Mean Corpuscular Hemoglobin 32.5 pg (28.0-33.3); Mean Corpuscular Volume 101.4 fL (83.0-100.0); Mean Platelet Volume 9.1 fL (9.4-12.4); Monocytes # 0.4 K/mcL (0.0-1.3); Monocytes % 2.9 %; Neutrophils # 10.6 K/mcL (1.6-8.9); Platelet Count 327 K/mcL (140-400); Red Blood Count 4.24 M/mcL (3.82-4.97); Red Cell Distribution Width 13.4 % (11.5-14.5); Segmented Neutrophils % 82.4 %
[2017-10-07 12:00] LABS: Alanine Aminotransferase 25 Units/L (7-52); Albumin/Globulin Ratio 1.6 (1.1-2.2); Alkaline Phosphatase 87 Units/L (34-104); Amylase 17 Units/L (29-103); Aspartate Amino Transferase 34 Units/L (13-39); BUN/Creatinine Ratio 21 (6-26); Bilirubin,Direct 0.1 mg/dL (0.0-0.2); Bilirubin,Indirect 0.3 mg/dL (0.0-1.2); Bilirubin,Total 0.4 mg/dL (0.3-1.0); Blood Urea Nitrogen 16 mg/dL (6-20); Calcium 8.8 mg/dL (8.6-10.3); Carbon Dioxide 8 mEq/L (23-29); Chloride 102 mEq/L (98-107); Globulin 2.5 g/dL (2.4-3.5); Glucose 389 mg/dL (70-105); Lipase 4 Units/L (11-82); Osmolality,Calculated 305 (280-300); Potassium 3.9 mEq/L (3.5-5.1); Sodium 139 mEq/L (136-145); Total Protein 6.5 g/dL (6.4-8.9); eGFR For Non-African Americans > 60 (> 60)
[2017-10-07 12:16] LABS: VBG HCO3 9 mEq/L (21-27); VBG PCO2 23 mmHg (41-51); VBG PH 7.21 pH Units (7.32-7.42); VBG PO2 180 mmHg (25-50)
[2017-10-07 12:24] LABS: Bilirubin,Urine Negative (Negative); Blood,Urine Large (Negative); Clarity,Urine Clear (Clear); Color,Urine Yellow (Yellow); Glucose,Urine (UA) >=1000 mg/dL (Normal); Ketones,Urine >=160 mg/dL (Negative); Leukocyte Esterase,Urine Negative (Negative); Nitrite,Urine Negative (Negative); PH,Urine 5.5 pH Units (5.0-8.0); Protein,Urine Trace mg/dL (Neg-Trace); Specific Gravity,Urine > 1.030 (1.010-1.025); Urobilinogen,Urine Normal (Normal)
[2017-10-07 12:28] LABS: Bacteria,Urine None Seen per hpf (None-Few); Hyaline Casts,Urine None Seen per lpf (None-Few); Squamous Epithelial Cell,Urine Moderate per lpf (None-Few)
[2017-10-07] MEDS ORDERED: *HR* Dextrose 50 % in Water (Syg) 50 ML SYRINGE IVP PRN ×3 (12:42→15:09)
[2017-10-07] MEDS ORDERED: Insulin Regular, Human 100 UNIT/ML IV PRN ×2 (12:42→12:54)
[2017-10-07] MEDS ORDERED: Potassium Chloride 40 MEQ, Lidocaine 1% 2 ML in D5% in Water 500 ML IVPB ONE (12:56)
[2017-10-07] MEDS ORDERED: Insulin Human Regular 100 UNIT in 0.9 % Sodium Chloride 100 ML IVC SCH (13:00)
[2017-10-07] MEDS ORDERED: 0.9 % Sodium Chloride w KCl 20 MEQ/1,000 ML MLS IVC SCH (13:00)
[2017-10-07] MEDS: 0.9 % Sodium Chloride 1,000 ML IVC SCH ×2 (13:03→16:00)
--- NOTE | 2017-10-07 13:44 | Emergency Department Note ---
Disposition Clinical Impression: Gastroparesis due to DM DKA (diabetic ketoacidoses) Qualifiers: Diabetes mellitus type: type 1 Diabetes mellitus complication detail: without coma Qualified Code(s): E10.10 - Type 1 diabetes mellitus with ketoacidosis without coma Nausea & vomiting Qualifiers: Vomiting type: unspecified Vomiting Intractability: non-intractable Qualified Code(s): R11.2 - Nausea with vomiting, unspecified Disposition: Admitted As Inpatient Condition: Fair Referrals: NONE,PCP [Primary Care Provider] - Forms: ED Satisfaction Letter, Work/School Release Time of Disposition: 13:44 General Adult HPI - General Chief complaint: ED Abdominal Pain Stated complaint: Abdominal pain vomiting Time Seen by Provider: 10/07/17 11:07 Source: patient Mode of arrival: EMS Limitations: no limitations - History of Present Illness Pain Scale: 4 - Related Data Home Medications Medication Instructions Recorded Confirmed Omeprazole [PriLOSEC] 40 mg PO BID 05/06/15 04/09/16 Insulin Degludec [Tresiba 30 units SQ Q24H 04/09/16 04/09/16 Flextouch U-100] Insulin LISPRO [Humalog Kwikpen 0 unit SQ TIDWM 04/09/16 04/09/16 U-100] Metoclopramide [Reglan] 10 mg PO TID 04/09/16 04/09/16 Allergies Allergy/AdvReac Type Severity Reaction Status Date / Time Penicillins Allergy Anaphylaxis Verified 05/06/15 18:57 Past Medical History - Past Medical History Medical history: Reports: diabetes, other (gastroparesis) Surgical history: Reports: other Psychiatric history: Reports: no psych history - Social History Smoking Status: Former smoker Smokeless Tobacco Status: No Alcohol use: Reports: occasionally Drug use: Reports: none Physical Exam - General Limitations: no limitations General appearance: alert, anxious Course Vital Signs Temperature 98.1 F 10/07/17 11:07 Pulse Rate 107 10/07/17 11:07 Respiratory Rate 16 10/07/17 11:07 Blood Pressure 114/78 10/07/17 11:07 O2 Sat by Pulse Oximetry 98 10/07/17 11:07 Temperature 98.1 F 10/07/17 11:07 Pulse Rate 106 10/07/17 13:11 Respiratory Rate 18 10/07/17 13:11 Blood Pressure 97/56 10/07/17 13:11 O2 Sat by Pulse Oximetry 98 10/07/17 13:11 Oxygen Delivery Oxygen Delivery Room Air Medical Decision Making - Lab Data Result diagrams: 10/07/17 11:28 10/07/17 11:28 Lab Results 10/07/17 10/07/17 10/07/17 Range/Units 11:28 11:28 11:56 WBC 12.8 H (4.3-11.1) K/mcL RBC 4.24 (3.82-4.97) M/mcL Hgb 13.8 (11.5-15.4) g/dL Hct 43.0 (35.3-44.9) % MCV 101.4 H (83.0-100.0) fL MCH 32.5 (28.0-33.3) pg MCHC 32.1 (31.6-35.5) g/dL RDW 13.4 (11.5-14.5) % Plt Count 327 (140-400) K/mcL MPV 9.1 L (9.4-12.4) fL Immature Gran % 1.2 (0-4) % Seg Neutrophils % 82.4 % Lymphocytes % 12.4 % Monocytes % 2.9 % Eosinophils % 0.2 % Basophils % 0.9 % Neutrophils # 10.6 H (1.6-8.9) K/mcL Lymphocytes # 1.6 (0.6-4.6) K/mcL Monocytes # 0.4 (0.0-1.3) K/mcL Eosinophils # 0.0 (0.0-0.6) K/mcL Basophils # 0.1 (0.0-0.2) K/mcL VBG pH (7.32-7.42) pH Units VBG pCO2 (41-51) mmHg VBG pO2 (25-50) mmHg VBG HCO3 (21-27) mEq/L Sodium 139 (136-145) mEq/L Potassium 3.9 (3.5-5.1) mEq/L Chloride 102 (98-107) mEq/L Carbon Dioxide 8 L* (23-29) mEq/L BUN 16 (6-20) mg/dL Creatinine 0.76 (0.60-1.20) mg/dL Est GFR ( Amer) > 60 (> 60) Est GFR (Non-Af Amer) > 60 (> 60) BUN/Creatinine Ratio 21 (6-26) Glucose 389 H (70-105) mg/dL POC Glucose (70-99) mg/dL Calculated Osmolality 305 H (280-300) Calcium 8.8 (8.6-10.3) mg/dL Total Bilirubin 0.4 (0.3-1.0) mg/dL Direct Bilirubin 0.1 (0.0-0.2) mg/dL Indirect Bilirubin 0.3 (0.0-1.2) mg/dL AST 34 (13-39) Units/L ALT 25 (7-52) Units/L Alkaline Phosphatase 87 (34-104) Units/L Serum Total Protein 6.5 (6.4-8.9) g/dL Albumin 4.0 (3.5-5.7) g/dL Globulin 2.5 (2.4-3.5) g/dL Albumin/Globulin Ratio 1.6 (1.1-2.2) Amylase 17 L (29-103) Units/L Lipase 4 L (11-82) Units/L Beta-Hydroxybutyric Acd (0.02-0.27) mmol/L Urine Color Yellow (Yellow) Urine Clarity Clear (Clear) Urine pH 5.5 (5.0-8.0) pH Units Ur Specific [place] > 1.030 H (1.010-1.025) Urine Protein Trace (Neg-Trace) mg/dL Urine Glucose (UA) >=1000 H (Normal) mg/dL Urine Ketones >=160 H (Negative) mg/dL Urine Blood Large H (Negative) Urine Nitrite Negative (Negative) Urine Bilirubin Negative (Negative) Urine Urobilinogen Normal (Normal) mg/dL Ur Leukocyte Esterase Negative (Negative) Urine Microscopic RBC 5-15 H (0-3) per hpf Urine Microscopic WBC 3-5 H (0-3) per hpf Ur Squamous Epith Cells Moderate H (None-Few) per lpf Urine Bacteria None Seen (None-Few) per hpf Hyaline Casts None Seen (None-Few) per lpf Ur Culture Indicated? NO (NO) Urine Test (Negative) 10/07/17 10/07/17 10/07/17 Range/Units 11:56 11:59 12:14 WBC (4.3-11.1) K/mcL RBC (3.82-4.97) M/mcL Hgb (11.5-15.4) g/dL Hct (35.3-44.9) % MCV (83.0-100.0) fL MCH (28.0-33.3) pg MCHC (31.6-35.5) g/dL RDW (11.5-14.5) % Plt Count (140-400) K/mcL MPV (9.4-12.4) fL Immature Gran % (0-4) % Seg Neutrophils % % Lymphocytes % % Monocytes % % Eosinophils % % Basophils % % Neutrophils # (1.6-8.9) K/mcL Lymphocytes # (0.6-4.6) K/mcL Monocytes # (0.0-1.3) K/mcL Eosinophils # (0.0-0.6) K/mcL Basophils # (0.0-0.2) K/mcL VBG pH 7.21 L (7.32-7.42) pH Units VBG pCO2 23 L (41-51) mmHg VBG pO2 180 H (25-50) mmHg VBG HCO3 9 L (21-27) mEq/L Sodium (136-145) mEq/L Potassium (3.5-5.1) mEq/L Chloride (98-107) mEq/L Carbon Dioxide (23-29) mEq/L BUN (6-20) mg/dL Creatinine (0.60-1.20) mg/dL Est GFR ( Amer) (> 60) Est GFR (Non-Af Amer) (> 60) BUN/Creatinine Ratio (6-26) Glucose (70-105) mg/dL POC Glucose (70-99) mg/dL Calculated Osmolality (280-300) Calcium (8.6-10.3) mg/dL Total Bilirubin (0.3-1.0) mg/dL Direct Bilirubin (0.0-0.2) mg/dL Indirect Bilirubin (0.0-1.2) mg/dL AST (13-39) Units/L ALT (7-52) Units/L Alkaline Phosphatase (34-104) Units/L Serum Total Protein (6.4-8.9) g/dL Albumin (3.5-5.7) g/dL Globulin (2.4-3.5) g/dL Albumin/Globulin Ratio (1.1-2.2) Amylase (29-103) Units/L Lipase (11-82) Units/L Beta-Hydroxybutyric Acd > 2.00 H (0.02-0.27) mmol/L Urine Color (Yellow) Urine Clarity (Clear) Urine pH (5.0-8.0) pH Units Ur Specific [place] (1.010-1.025) Urine Protein (Neg-Trace) mg/dL Urine Glucose (UA) (Normal) mg/dL Urine Ketones (Negative) mg/dL Urine Blood (Negative) Urine Nitrite (Negative) Urine Bilirubin (Negative) Urine Urobilinogen (Normal) mg/dL Ur Leukocyte Esterase (Negative) Urine Microscopic RBC (0-3) per hpf Urine Microscopic WBC (0-3) per hpf Ur Squamous Epith Cells (None-Few) per lpf Urine Bacteria (None-Few) per hpf Hyaline Casts (None-Few) per lpf Ur Culture Indicated? (NO) Urine Test Negative (Negative) 10/07/17 Range/Units 13:31 WBC (4.3-11.1) K/mcL RBC (3.82-4.97) M/mcL Hgb (11.5-15.4) g/dL Hct (35.3-44.9) % MCV (83.0-100.0) fL MCH (28.0-33.3) pg MCHC (31.6-35.5) g/dL RDW (11.5-14.5) % Plt Count (140-400) K/mcL MPV (9.4-12.4) fL Immature Gran % (0-4) % Seg Neutrophils % % Lymphocytes % % Monocytes % % Eosinophils % % Basophils % % Neutrophils # (1.6-8.9) K/mcL Lymphocytes # (0.6-4.6) K/mcL Monocytes # (0.0-1.3) K/mcL Eosinophils # (0.0-0.6) K/mcL Basophils # (0.0-0.2) K/mcL VBG pH (7.32-7.42) pH Units VBG pCO2 (41-51) mmHg VBG pO2 (25-50) mmHg VBG HCO3 (21-27) mEq/L Sodium (136-145) mEq/L Potassium (3.5-5.1) mEq/L Chloride (98-107) mEq/L Carbon Dioxide (23-29) mEq/L BUN (6-20) mg/dL Creatinine (0.60-1.20) mg/dL Est GFR ( Amer) (> 60) Est GFR (Non-Af Amer) (> 60) BUN/Creatinine Ratio (6-26) Glucose (70-105) mg/dL POC Glucose 109 H (70-99) mg/dL Calculated Osmolality (280-300) Calcium (8.6-10.3) mg/dL Total Bilirubin (0.3-1.0) mg/dL Direct Bilirubin (0.0-0.2) mg/dL Indirect Bilirubin (0.0-1.2) mg/dL AST (13-39) Units/L ALT (7-52) Units/L Alkaline Phosphatase (34-104) Units/L Serum Total Protein (6.4-8.9) g/dL Albumin (3.5-5.7) g/dL Globulin (2.4-3.5) g/dL Albumin/Globulin Ratio (1.1-2.2) Amylase (29-103) Units/L Lipase (11-82) Units/L Beta-Hydroxybutyric Acd (0.02-0.27) mmol/L Urine Color (Yellow) Urine Clarity (Clear) Urine pH (5.0-8.0) pH Units Ur Specific [place] (1.010-1.025) Urine Protein (Neg-Trace) mg/dL Urine Glucose (UA) (Normal) mg/dL Urine Ketones (Negative) mg/dL Urine Blood (Negative) Urine Nitrite (Negative) Urine Bilirubin (Negative) Urine Urobilinogen (Normal) mg/dL Ur Leukocyte Esterase (Negative) Urine Microscopic RBC (0-3) per hpf Urine Microscopic WBC (0-3) per hpf Ur Squamous Epith Cells (None-Few) per lpf Urine Bacteria (None-Few) per hpf Hyaline Casts (None-Few) per lpf Ur Culture Indicated? (NO) Urine Test (Negative) Attestation Statement - Attestation Attestation: I, Timmy Kemp DO, examined this patient [id number] and my medical decision-making was reviewed with Dr. Audrey Jaramillo, Resident Physician. I agree with the documented findings, disposition and treatment plan as described except to the extent set forth below. Please see my progress notes for details. 32-year-old female presents emergency room with complaint of nausea vomiting and generalized malaise. Patient is a long-standing history of gastroparesis and type 1 diabetes. Her glucose was greater than 350 home today and she took her sliding scale medications. She has had this happen multiple times the past for her gastroparesis flares up secondary to fluid she has eaten and she was in the diabetic ketoacidosis. Several days ago she was [place] a amusement park and 8 fatty foods and had some alcohol that time and since then she has had stomach discomfort. She denies any fevers or chills she has had nausea and vomiting without diarrhea. Denies any chest pain shortness of breath headache or vision change. Her main complaint is a generalized malaise difficulty with keeping food down stomach discomfort and worried about her electrolytes. Patient typically has had low potassium when her diabetes has flared up and she wanted to be evaluated sooner than later. Initial presentation shows slight tachycardia stable blood pressure patient is alert she is mentating appropriately she is not in any respiratory or cardiac distress. Her lungs are clear heart is regular but tachycardic abdomen is soft nontender nondistended with no guarding no rigidity. She does not have any rashes or lesions. She is mentating appropriately. Labs were ordered for diabetic ketoacidosis an initial 1 L of fluid was given along with Accu-Chek which was greater than 350 again at this time. EKG CBC chemistry EKG along with serum ketones will be collected this time and urinalysis. Disposition will most likely be admission the hospital once the full workup and treatment course are completed we will continue to monitor here as symptoms are controlled and evaluation is established. Patient is otherwise clinically stable and does not require any emergent intervention at this point. See detailed documentation the physical exam, medical intervention, medical decision-making and disposition in the resident physician's note. No critical care provider the patient's treatment course at this time. 1325 Patient's labs are consistent with diabetic ketoacidosis she does have a gap. Patient started on 2 more liters of fluid as well as an insulin drip after Accu- Chek will be collected. Potassium rider was started as well considering her potassium was 3.9. Patient was informed of the findings and recommended for admission. Repeat Accu-Chek was collected was 109 to the patient will be provided with a meal tray and the repeat Accu-Cheks will be collected as well. Patient did take her sliding scale medication prior to coming in so is unknown whether or not this was a normal fluctuation for her. She still does not meet the criteria for diabetic ketoacidosis with the labs were collected on initial evaluation here. Admission process was completed after conversations were had with the on-call attending Dr. hayes. No other recommendations or concerns this time onset of request for one amp of bicarbonate. This does not clinically change the disposition or management of the patient in the emergency department because of the request from the hospital so will be added on. There is no significant risk given his medication this point. Patient otherwise clinically stable what appears to be responsive diabetic ketoacidosis and fluid resuscitation started. Approximately 35 minutes of critical care provider the patient's treatment course at this time.
[2017-10-07] MEDS ORDERED: Insulin DETEMIR 100 UNIT/ML X5UNITS SQ ONE (15:06)
[2017-10-07] MEDS ORDERED: D5% in Water 1,000 ML IVC PRN (15:09)
[2017-10-07] MEDS ORDERED: Dextrose Gel 15 GM/37.5 ML TUBE PO PRN (15:09)
[2017-10-07] MEDS ORDERED: D5% in 0.45% NACL w KCl 20 MEQ/1,000 ML MLS IVC SCH (15:15)
[2017-10-07] MEDS ORDERED: Naloxone 0.4 MG/ML INJ IVP PRN (15:20)
[2017-10-07] MEDS: Metoclopramide 10 MG/2 ML VIAL IVP SCH ×3 (16:45→23:47)
[2017-10-07 17:01] LABS: BUN/Creatinine Ratio 21 (6-26); Blood Urea Nitrogen 13 mg/dL (6-20); Calcium 7.5 mg/dL (8.6-10.3); Carbon Dioxide 13 mEq/L (23-29); Chloride 109 mEq/L (98-107); Glucose 203 mg/dL (70-105); Magnesium 1.7 mg/dL (1.6-2.6); Osmolality,Calculated 290 (280-300); Potassium 4.5 mEq/L (3.5-5.1); Sodium 137 mEq/L (136-145); eGFR For Non-African Americans > 60 (> 60)
[2017-10-07] MEDS: Insulin LISPRO 300 UNITS/3 ML VIAL SQ SCH ×2 (17:35→17:36)
[2017-10-07 20:24] LABS: BUN/Creatinine Ratio 19 (6-26); Blood Urea Nitrogen 13 mg/dL (6-20); Calcium 7.8 mg/dL (8.6-10.3); Carbon Dioxide 12 mEq/L (23-29); Chloride 110 mEq/L (98-107); Glucose 175 mg/dL (70-105); Osmolality,Calculated 292 (280-300); Potassium 3.6 mEq/L (3.5-5.1); Sodium 139 mEq/L (136-145); eGFR For Non-African Americans > 60 (> 60)
[2017-10-07] MEDS ORDERED: lamoTRIgine 100 MG TABLET PO SCH (21:00)
[2017-10-07] MEDS ORDERED: Insulin DETEMIR 100 UNIT/ML X5UNITS SQ SCH (21:00)
[2017-10-07] MEDS ORDERED: Insulin LISPRO 300 UNITS/3 ML VIAL SQ SCH (21:00)
--- NOTE | 2017-10-08 01:51 | Internal Med History&Physical ---
Date of Encounter: 10/07/17 Time of Encounter: 23:00 Internal Medicine - H&P: HPI Admitted From: Home Plans for Post Hospital Care: Home History of present illness: Ms. Tim is a 32 year old female. She has had long-standing type 1 diabetes mellitus (started when she was son 21 years old); with bouts of gastroparesis (usually twice a year). It was today morning around 3:30 AM when she quite suddenly developed nausea and vomiting. She gradually developed a mild/moderate diffuse abdominal pain. After she got that treatments in the emergency department early nausea, vomiting and abdominal pain subsidedshe was offered diabetic meal. Before it happened that she was on IV insulin drip. It was stopped when her glucose dropped to 109. There was no transition with D5 half normal saline. The patient received IV potassium chloride, as her potassium was relatively low. The patient does not feel like she has a quiet any particular infection. Denies coughing and wheezing. Denies urinary symptoms. She does not have any skin lesions suspected to infected. She is treated for some kind of mood disorder. Likely bipolar disorder. Review of systems: All 14 organ systems were reviewed by me with the patient. Positive and pertinent negative findings are listed above. The rest of organ systems is negative. Physical Exam: Skin: Free of rash and discoloration. Eyes: Sclera is white. There is no discharge from eyes. ENMT: Oral/pharyngeal mucosa is normal in appearance. There is no discharge from nose or ears. Respiratory: Normal breath sounds with no crackles and wheezes bilaterally. CV: Heart is regular with no gallop or murmur. GI: Abdomen is flat and soft with no palpable mass or visceromegaly. : There is no tenderness in patient's flanks bilaterally. Neuro exam: He has good strength in upper and lower extremities. He has normal eye movements. Psychiatric: He has normal affect. His thought process is appropriate to the situation. A/P: DKA in a patient with type 1 diabetes mellitus/diabetic gastroparesis. Insulin drip was stopped and patient was offered meals before her annual gap was closed. Will give her insulin Levemir. She will continue diabetic diet and when necessary Humalog. We will be watching her BMP closely. The prevent nausea/vomiting I will keep her on scheduled IV Reglan. We may need to restart her insulin drip, if we see her annual gap widening. Acute hypokalemia. She got IV potassium chloride in the emergency department. She will have BMP/magnesium in the morning. Past Med Surg Social Fam HX - Past Medical History Medical history: diabetes, other Additional medical history: gastroparesis Psychiatric history: no psych history - Past Surgical History Surgical History: other Additional surgical history: teeth removal - Social History Smoking Status: Former smoker Smokeless Tobacco Status: No Alcohol use: occasionally Drug use: none - Family History Mother Living Status: Still Living Father Living Status: Still Living Internal Medicine - H&P: Meds Escitalopram [Lexapro] 10 mg PO DAILY 10/07/17 [History] Insulin DETEMIR [Levemir Flextouch] 10 - 15 unit SQ BID 10/07/17 [History] Insulin LISPRO [HumaLOG] 0 units SQ TIDWM PRN 10/07/17 [History] Insulin LISPRO [Humalog Kwikpen U-100] 0 unit SQ TID PRN 10/07/17 [History] lamoTRIgine [Lamictal] 100 mg PO HS 10/07/17 [History] Metoclopramide [Reglan] 5 mg PO Q6HR PRN 30 Days #120 mls 10/08/17 [Rx] 3 Allergy/AdvReac Type Severity Reaction Status Date / Time Penicillins Allergy Anaphylaxis Verified 05/06/15 18:57 - Constitutional Vitals: Temp Pulse Resp BP Pulse Ox 99.9 F H 96 16 91/59 98 10/07/17 23:46 10/07/17 23:46 10/07/17 23:46 10/07/17 23:46 10/07/17 23:46 General appearance: Present: A&O X 3, no acute distress, answers questions appropriately Internal Med - H&P Results - Labs CBC & Chem 7: 10/08/17 05:38 10/08/17 05:38 Labs: BMP 10/07/17 10/07/17 16:20 19:38 Sodium 137 139 Potassium 4.5 3.6 Chloride 109 H 110 H Carbon Dioxide 13 L 12 L BUN 13 13 Creatinine 0.62 0.67 Glucose 203 H 175 H Calcium 7.5 L 7.8 L - Assessment and plan (1) Diabetic ketoacidosis Status: Acute Qualifiers: Diabetes mellitus type: type 1 Diabetes mellitus complication detail: without coma Qualified Code(s): E10.10 - Type 1 diabetes mellitus with ketoacidosis without coma (2) DM type 1 (diabetes mellitus, type 1) Status: Acute Qualifiers: Diabetes mellitus complication status: with ketoacidosis Diabetes mellitus complication detail: without coma Qualified Code(s): E10.10 - Type 1 diabetes mellitus with ketoacidosis without coma (3) Gastroparesis due to DM Status: Acute - Time Spent With Patient Total time spent is greater than 50% in coordination of care (as documented) at patient's floor/unit and/or counseling patient: Greater than 35 minutes (45 minutes)
[2017-10-08] MEDS: Metoclopramide 10 MG/2 ML VIAL IVP SCH ×2 (05:00→10:49)
[2017-10-08 06:06] LABS: Basophils # 0.1 K/mcL (0.0-0.2); Basophils % 0.7 %; Eosinophils # 0.1 K/mcL (0.0-0.6); Hematocrit 37.9 % (35.3-44.9); Hemoglobin 12.4 g/dL (11.5-15.4); Immature Granulocytes % 0.7 % (0-4); Lymphocytes # 2.3 K/mcL (0.6-4.6); Lymphocytes % 33.7 %; Mean Corpuscular HGB Conc 32.7 g/dL (31.6-35.5); Mean Corpuscular Hemoglobin 32.9 pg (28.0-33.3); Mean Corpuscular Volume 100.5 fL (83.0-100.0); Mean Platelet Volume 8.6 fL (9.4-12.4); Monocytes # 0.5 K/mcL (0.0-1.3); Monocytes % 7.8 %; Neutrophils # 3.8 K/mcL (1.6-8.9); Platelet Count 241 K/mcL (140-400); Red Blood Count 3.77 M/mcL (3.82-4.97); Red Cell Distribution Width 13.4 % (11.5-14.5); Segmented Neutrophils % 56.1 %
[2017-10-08 06:28] LABS: BUN/Creatinine Ratio 22 (6-26); Blood Urea Nitrogen 13 mg/dL (6-20); Calcium 7.9 mg/dL (8.6-10.3); Carbon Dioxide 20 mEq/L (23-29); Chloride 111 mEq/L (98-107); Glucose 42 mg/dL (70-105); Osmolality,Calculated 287 (280-300); Potassium 3.4 mEq/L (3.5-5.1); Sodium 140 mEq/L (136-145); eGFR For Non-African Americans > 60 (> 60)
[2017-10-08] MEDS: Insulin LISPRO 300 UNITS/3 ML VIAL SQ SCH ×3 (09:21→10:46)
[2017-10-08] MEDS ORDERED: Metoclopramide 10 MG/10 ML UD.LIQ PO PRN (10:55)
[2017-10-08 11:06] VITALS: BP 118/87
--- NOTE | 2017-10-08 17:20 | Discharge Summary ---
<Graham Suarez - Last Filed: 10/08/17 17:40> - NOTES TO OUTPATIENT PROVIDER Notes to Outpatient Provider: Patient admitted for DKA and gastroparesis Date of Encounter: 10/08/17 Time of Encounter: 10:00 - Discharge Diagnosis (1) Diabetic ketoacidosis Priority: Primary Status: Acute Assessment and Plan: UA positive for ketones and glucose Patient's glucose controlled on insulin levemir and humalog Patient was on dextrose D5W PRN for hypoglycemia Qualifiers: Diabetes mellitus type: type 1 Diabetes mellitus complication detail: without coma Qualified Code(s): E10.10 - Type 1 diabetes mellitus with ketoacidosis without coma (2) Gastroparesis Priority: Primary Status: Acute Assessment and Plan: Patient states her last episode of vomiting was yesterday She's had 3 meals since then She was discharged home on reglan Hospital course: Ms. Tim is a 32 year old female who presents with nausea and vomiting. Patient was admitted for gastroparesis 2/2 DMI and DKA. Patient was started on IV insulin drip, and was discontinued when her glucose was 109. She has given K replacements. Patient's anion gap closed. Patient was placed on diabetic diet and IV reglan. Patient's lab values improved and she wanted to leave. She was discharged with a Rx for reglan and instructed to follow up with her endocrinology and her PCP, Yoana Napier. Discharge discussed with: patient, nurse - Time Spent with Patient Total time spent providing and/or coordinating discharge services: Less than 30 minutes - Discharge Medications Prescriptions: Metoclopramide [Reglan] 5 mg PO Q6HR PRN 30 Days #120 mls PRN Reason: Vomiting Home Medications: Escitalopram [Lexapro] 10 mg PO DAILY 10/07/17 [History] Insulin DETEMIR [Levemir Flextouch] 10 - 15 unit SQ BID 10/07/17 [History] Insulin LISPRO [HumaLOG] 0 units SQ TIDWM PRN 10/07/17 [History] Insulin LISPRO [Humalog Kwikpen U-100] 0 unit SQ TID PRN 10/07/17 [History] lamoTRIgine [Lamictal] 100 mg PO HS 10/07/17 [History] Metoclopramide [Reglan] 5 mg PO Q6HR PRN 30 Days #120 mls 10/08/17 [Rx] Allergies/Adverse Reactions: 3 Allergy/AdvReac Type Severity Reaction Status Date / Time Penicillins Allergy Anaphylaxis Verified 05/06/15 18:57 Date of admission: 10/07/17 14:17 Primary care physician: Yoana Napier CNP Discharging clinician: Graham Suarez Anticipated date of discharge: 10/08/17 - Constitutional Vitals: Temp Pulse Resp BP Pulse Ox 98.8 F 93 16 118/87 100 10/08/17 11:01 10/08/17 11:01 10/08/17 11:01 10/08/17 11:01 10/08/17 11:01 General appearance: Present: A&O X 3, no acute distress - Head Head exam: Present: normal inspection - Respiratory Respiratory exam: Present: CTAB - Cardiovascular Cardiovascular exam: Present: RRR, +S1, +S2 - GI/Abdominal GI/Abdominal exam: Present: normal bowel sounds, soft, no peritoneal signs - Extremities Exam Extremities exam: Present: full ROM, normal inspection, warm, radial pulses palpable and symmetrical - Neurological Exam Neurological exam: Present: alert, CN II-XII intact, oriented X3, no focal deficits - Psychiatric Psychiatric exam: Present: normal affect - Patient Status Disposition: Home, Self-Care Condition: Good Functional capacity at discharge: independent ambulation Overall status at discharge: patient is back to baseline - Discharge Instructions Instructions: Diabetes Mellitus Type 2 in Adults (DC) Follow Up With: Yoana Napier CNP [Primary Care Provider] - Paulo Wilkinson MD [Partnered Physician] - 10/17/17 9:30 am (Please take the new patient packet filled out to your appointment, if you do not receive the new patient packet in the mail before your appointment please arrive 30 minutes early. Take with you your Ins card, Picture ID, all medications including over the counter meds. Please call [phone] to cancel if you can not make it to this appointment 24 hours in advance. The Find a doctor line said this will be the last appointment they can make due to you not showing up for your appointments. ) - Diet and Activity Activity: increase activity as tolerated Diet: advance to your usual diet <Monica Velasquezbu - Last Filed: 10/08/17 18:47> Date of Encounter: 10/08/17 - Discharge Diagnosis (1) Diabetic ketoacidosis Status: Acute Qualifiers: Diabetes mellitus type: type 1 Diabetes mellitus complication detail: without coma Qualified Code(s): E10.10 - Type 1 diabetes mellitus with ketoacidosis without coma (2) Gastroparesis Status: Acute Hospital course: Ms. Tim is a 32 year old female - Time Spent with Patient Total time spent providing and/or coordinating discharge services: Date of admission: 10/07/17 14:17 Primary care physician: Yoana Napier CNP - Constitutional Vitals: Temp Pulse Resp BP Pulse Ox 98.8 F 93 16 118/87 100 10/08/17 11:01 10/08/17 11:01 10/08/17 11:01 10/08/17 11:01 10/08/17 11:01 - Attending Attestation I examined this patient and my medical decision-making was reviewed with the Resident Physician Dr. Suarez . I agree with the documented findings, disposition and treatment plan as described except to the extent set forth below. Ms. Tim is a 32 y/o F with known type 1 DM admitted here for DKA. Her symptoms improved now and BS also better. So will dc her home in stable condition with her home insulin regimen. Recommend to use Reglan for gastroapresis. Gen: A,A< O x3 chest: CTA Bad; Soft, NT
== END 2017-10-08 12:00 | disposition home or self-care (01) | DRG 639 ==
LOC: EMEROO 11:05 → 2NNU 14:17 → SUATTDRO 14:17 → 2NNU 15:49
PROVIDERS: ADMIT Hospitalist; ATTEND Internal Medicine